=== PATIENT | female | born 1980 | race Caucasian/White ===

== ENCOUNTER 2023-12-12 15:56 | Emergency (ER) | payer OTHER, SELFPAY ==
[2023-12-12] VITALS (10 sets, daily range): BP systolic 125; BP diastolic 66; PULSE 60–87; TEMP 36.8; O2SAT 97–98; BMI 49.5
--- NOTE | 2023-12-12 16:17 | XR_ITS ---
The [address] [address] Patient Name: NORBERTO JHAVERI MRN: [id number] date: 1980 Sex: F Assigned Patient Location: ER Current Patient Location: ER Accession/Order Number: [id number] Exam Date: 12/12/2023 16:44 Report Date: 12/12/2023 17:35 At the request of: HARPAL SCOTT Procedure: XR chest 1V CXR HISTORY: Chest tightness COMPARISON: None. TECHNIQUE: 1 view chest submitted for review. FINDINGS: The lungs are adequately expanded without evidence of acute infiltrate or effusion. The cardiac silhouette measures within normal. Pulmonary vascularity is unremarkable. Osseous structures do not demonstrate any acute abnormality. XR/XR chest 1V IMPRESSION: No plain film evidence for acute cardiopulmonary disease. Electronically authenticated by: LARY GALLEGOS Date: 12/12/2023 17:35
--- NOTE | 2023-12-12 16:17 | ECG_ITS ---
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
--- NOTE | 2023-12-12 16:19 | ED_ITS ---
HPI HPI - General Adult General Chief complaint: Chest Pain Stated complaint: Chest pain Time Seen by Provider: 12/12/23 16:12 Source: patient Mode of arrival: walk-in Limitations: no limitations History of Present Illness HPI narrative: Patient is a 43-year-old female presents to the ER with concerns of chest tightness and palpitations. Patient states she noticed some palpitations last night around 5 PM, when she went to go to bed she experienced some tightness squeezing sensation at her chest and back. Patient notes symptoms have been present today, sometimes worse with activity but denies any nausea diaphoresis or shortness of breath. She denies any cough or congestion. She has a history of hyperlipidemia and low potassium. She denies any history of PE or DVT. Patient appears in no distress at bedtime, but just wanted to get checked out. Radiation: Reports non-radiation Severity: mild Treatments prior to arrival: Reports none Related Data Home Medications ?Medication ?Instructions ?Recorded ?Confirmed citalopram 20 mg tablet 20 mg PO DAILY 12/12/23 12/12/23 rosuvastatin 5 mg tablet 5 mg PO DAILY 12/12/23 12/12/23 Allergies Allergy/AdvReac Type Severity Reaction Status Date / Time levofloxacin (From Levaquin) Allergy Mild arrythmia Verified 12/12/23 16:13 Opioid HPI Opioid Management Most Recent Opioid Data: Last Pain Scale 2 12/12/23 16:32 12/12/23 Last MAR Pain Assessment 12/12/23 16:32 Review of Systems ROS Constitutional Denies: fever or chills Eyes Denies: change in vision Ears, nose, mouth, and throat Denies: throat pain or neck pain Cardiovascular Reports: chest pain and palpitations; Denies: edema, swelling of feet/ankles, lightheadedness or shortness of breath when lying down Respiratory Denies: shortness of breath Gastrointestinal Denies: abdominal pain, nausea or vomiting Genitourinary Denies: painful urination Musculoskeletal Reports: back pain; Denies: neck pain, extremity pain or extremity swelling Integumentary/Breast Denies: rash Neurological Denies: headache Psychiatric Denies: anxiety Endocrine Denies: excessive urination Exam Narrative Exam Narrative: Nurses notes and vital signs reviewed and patient is not hypoxic. General: The patient appears well and in no apparent distress. Patient is resting comfortably on cart. Skin: Warm, dry, no pallor noted. Head: Normocephalic, atraumatic Neck: Supple, trachea mid-line, no tenderness, no lymphadenopathy Eye: Pupils are equal, round and reactive to light, EOMI Ears, Nose, Mouth, and Throat: TM are clear, normal light reflex, oral mucosa is moist, no posterior oropharynx erythema or hypertrophy, uvula is mid-line Cardiovascular: Regular Rate and Rhythm Respiratory: Patient is in no distress, no accessory muscle use, lungs are clear to auscultation, no wheezing, rales or rhonchi. Chest Wall: no tenderness Back: non-tender, no CVA tenderness Musculoskeletal: normal ROM, no tenderness, no swelling GI: Normal bowel sounds, no tenderness to palpation, no masses appreciated. No rebound, guarding, or rigidity noted. Neurological: A&O x4 Psychiatric: Cooperative Constitutional Vital Signs, click to edit/add: Last Vital Signs Temp 98.2 F 12/12/23 16:09 Pulse 66 12/12/23 17:00 Resp 17 12/12/23 17:00 BP 125/66 12/12/23 16:10 Pulse Ox 97 12/12/23 17:00 O2 Del Method Room Air 12/12/23 16:20 Course Vital Signs Vital signs: Vital Signs Pulse Rate 76 12/12/23 16:08 Respiratory Rate 16 12/12/23 16:08 Temperature 98.2 F 12/12/23 16:09 Pulse Rate 66 12/12/23 17:00 Respiratory Rate 17 12/12/23 17:00 Blood Pressure 125/66 12/12/23 16:10 Pulse Oximetry 97 12/12/23 17:00 Oxygen Delivery Method Room Air 12/12/23 16:20 Medical Decision Making MDM Narrative Medical decision making narrative: pt with minimal symptoms at this time, given obesity and hyperlipidemia aspirin under 62 mg given. Patient will also be given Toradol 50 mg IV. Pepcid is IV. Will await laboratory studies and chest x-ray. EKG 76 bpm normal sinus rhythm. 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 Patient notes history of palpitations with green tea use, she denies any caffeine products and only had a Pepsi zero earlier today. Laboratory studies, discussed chest x-ray negative for infiltrate. Patient with evidence of hypokalemia. She has had this in the past. She does recall possible similar symptoms with her palpitations. She will practice a potassium rich diet, given 50 mEq here. The patient is to followup with primary care physician in next 2-3 days or to return to the emergency department should any of the signs or symptoms worsen or new symptoms develop. Patient had questions answered. The patient agrees with the following Diagnosis and Treatment plan and the patient will be discharged home. Lab Data Labs: Lab Results 12/12/23 Range/Units 16:15 WBC 8.2 (4.0-11.0) 10^3/uL RBC 4.61 (4.20-5.40) 10^6/uL Hgb 13.7 (12.0-16.0) g/dL Hct 41.5 (36.0-48.0) % MCV 90.0 (81.0-99.0) fL MCH 29.7 (26.7-34.0) pg MCHC 33.0 (29.9-35.2) g/dL RDW 13.3 (11.0-15.0) % Plt Count 274 (150-450) 10^3/uL MPV 10.1 (9.5-13.5) fL Neut % (Auto) 54.7 (43.0-75.0) % Lymph % (Auto) 33.4 (20.5-60.0) % [place] % (Auto) 8.1 (1.7-12.0) % Eos % (Auto) 2.2 (0.9-7.0) % Baso % (Auto) 1.0 (0.2-2.0) % Neut # (Auto) 4.5 (1.4-6.5) 10^3/uL Lymph # (Auto) 2.8 (1.2-3.8) 10^3/uL [place] # (Auto) 0.7 (0.3-0.8) 10^3/uL Eos # (Auto) 0.2 (0.0-0.7) 10^3/uL Baso # (Auto) 0.1 (0.0-0.1) 10^3/uL Abs Immat Gran (auto) 0.05 H (0.00-0.03) 10^3/uL Imm/Tot Granulo (auto) 0.6 H (0.0-0.5) % D-Dimer 0.27 (<=0.59) mg/L FEU Sodium 143 (136-145) mmol/L Potassium 3.0 L (3.5-5.1) mmol/L Chloride 104 (98-107) mmol/L Carbon Dioxide 30.3 (21.0-32.0) mmol/L Anion Gap 11.7 BUN 8.0 (7.0-18.0) mg/dL Creatinine 0.72 (0.55-1.02) mg/dL Est GFR ( Amer) >60 (>=60 mL/min/1.73m^2) Est GFR (Non-Af Amer) >60 (>=60 mL/min/1.73m^2) BUN/Creatinine Ratio 11.1 Glucose 125 H (74-106) mg/dL Calcium 9.4 (8.5-10.1) mg/dL Total Bilirubin 0.5 (0.2-1.0) mg/dL AST 25 (15-37) U/L ALT 30 (14-59) U/L Alkaline Phosphatase 59 (46-116) U/L Troponin I High Sens 4.0 (4.0-51.3) pg/mL Total Protein 7.3 (6.4-8.2) g/dL Albumin 3.7 (3.4-5.0) g/dL Globulin 3.6 g/dL Albumin/Globulin Ratio 1.0 Lipase 33.0 (16.0-77.0) U/L TSH & Free T4 Interp 1.590 (0.358-3.740) uIU/mL Imaging Data Chest x-ray: Radiologist's impression: ITS Impressions Chest X-Ray 12/12/23 16:17 IMPRESSION: No plain film evidence for acute cardiopulmonary disease. Electronically authenticated by: LARY GALLEGOS Date: 12/12/2023 17:35 ECG Data Attestation: I personally reviewed and interpreted this ECG as follows: Interpretation: EKG interpretation: Emergency Department physician interpretation, normal sinus rhythm 76 bpm, no ectopy, no ST segment elevation, normal axis. Discharge Plan Discharge Chief Complaint: Chest Pain Clinical Impression: Palpitations, Hypokalemia Patient Disposition: Home, Self-Care Time of Disposition Decision: 17:46 Condition: Good Prescriptions / Home Meds: No Action citalopram 20 mg tablet 20 mg PO DAILY rosuvastatin 5 mg tablet 5 mg PO DAILY Print Language: Nepalese Instructions: Heart Palpitations (ED), Potassium Content of Foods List (ED) Referrals: MAICO MTZ [Primary Care Provider] - As soon as possible
--- NOTE | 2023-12-12 16:20 | PC.NURSE ---
pt describes this as a tight feeling in chest that radiates to back
[2023-12-12] MEDS: FAMOTIDINE/PF 20 MG/2 ML VIAL IV (16:32)
[2023-12-12] MEDS: ASPIRIN 81 MG TAB.CHEW 162 MG PO (16:32)
[2023-12-12] MEDS: KETOROLAC TROMETHAMINE 30 MG/ML VIAL 15 MG IVP (16:32)
[2023-12-12 16:44] LABS: Basophils Absolute Auto 0.1 10^3/uL (0.0-0.1); Eosinophils Absolute Auto 0.2 10^3/uL (0.0-0.7); Eosinophils Percent Auto 2.2 % (0.9-7.0); Hematocrit 41.5 % (36.0-48.0); Hemoglobin 13.7 g/dL (12.0-16.0); Immature Granulocytes Abs Auto 0.05 10^3/uL (0.00-0.03); Immature Granulocytes Pct Auto 0.6 % (0.0-0.5); Lymphocytes Absolute Auto 2.8 10^3/uL (1.2-3.8); Lymphocytes Percent Auto 33.4 % (20.5-60.0); Mean Corpuscular Hemoglobin 29.7 pg (26.7-34.0); Mean Platelet Volume 10.1 fL (9.5-13.5); Monocytes Absolute Auto 0.7 10^3/uL (0.3-0.8); Monocytes Percent Auto 8.1 % (1.7-12.0); Neutrophils Absolute Auto 4.5 10^3/uL (1.4-6.5); Neutrophils Percent Auto 54.7 % (43.0-75.0); Platelet Count 274 10^3/uL (150-450); Red Blood Count 4.61 10^6/uL (4.20-5.40); Red Cell Distribution Width 13.3 % (11.0-15.0); White Blood Count 8.2 10^3/uL (4.0-11.0)
[2023-12-12 16:59] LABS: Alanine Aminotransferase 30 U/L (14-59); Albumin Level 3.7 g/dL (3.4-5.0); Alkaline Phosphatase 59 U/L (46-116); Anion Gap 11.7; Aspartate Amino Transferase 25 U/L (15-37); BUN Creatinine Ratio 11.1; Bilirubin Total 0.5 mg/dL (0.2-1.0); Calcium 9.4 mg/dL (8.5-10.1); Carbon Dioxide 30.3 mmol/L (21.0-32.0); Chloride 104 mmol/L (98-107); Estimated GFR (African America >60 (>=60 mL/min/1.73m^2); Estimated GFR (Non-African Ame >60 (>=60 mL/min/1.73m^2); Globulin 3.6 g/dL; Glucose 125 mg/dL (74-106); Sodium 143 mmol/L (136-145); Total Protein 7.3 g/dL (6.4-8.2)
[2023-12-12 17:08] LABS: D Dimer 0.27 mg/L FEU (<=0.59)
[2023-12-12] MEDS: POTASSIUM BICARBONATE/CIT 25 MEQ TABLET EFF 50 MEQ PO (17:34)
== END 2023-12-12 17:52 | disposition home or self-care (01) ==
PROVIDERS: Personal Emergency Response Attendant; Emergency Provider Emergency Medicine; PCP Family Medicine
DX: E87.6 Hypokalemia (principal); R00.2 Palpitations; E78.5 Hyperlipidemia, unspecified; E66.9 Obesity, unspecified
CPT/HCPCS: 36415; 71045; 80053; 83690; 84443; 84484; 85025; 85378; 93005; 96374; 96375; 99285; J1885